=== PATIENT | male | born 1960 | race Caucasian/White ===

== ENCOUNTER 2025-10-15 06:46 | Inpatient (IN) | payer MEDICARE, OTHER ==
[2025-10-08 14:07] LABS: MEAN PLATELET VOLUME 8.5 FL (7.4-10.4); PRE OP HEMATOCRIT 45.8 % (42.0-52.0); PRE OP HEMOGLOBIN 15.6 g/dL (14.0-17.9); PRE OP PLATELET COUNT 203 X10'3 (140-440); PRE OP WHITE BLOOD COUNT 5.1 10'3 (4.8-10.8); RED CELL DISTRIBUTION WIDTH 13.7 % (11.5-14.5)
--- NOTE | 2025-10-08 14:08 | ELECTROCARDIOGRAPH REPORT ---
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 SUSAN Reyes Measurements Intervals [place] Rate: 47 P: 3 WA: 177 QRS: 0 QRSD: 115 T: 61 QT: 482 QTc: 427 Interpretive Statements Sinus bradycardia Nonspecific intraventricular conduction delay Electronically Signed On 10-08-2025 16:54:[address] SUSAN Reyes Please click the below link to view image of tracing.
[2025-10-08 14:28] LABS: CREATININE 0.94 MG/DL (0.60-1.10); PRE OP ALT 22 U/L (30-65); PRE OP ANION GAP 10 (8-16); PRE OP AST 17 U/L (10-37); PRE OP BILIRUB, TOTAL 0.8 MG/DL (0.0-1.0); PRE OP GLUCOSE 96 MG/DL (70-104); PRE OP POTASSIUM 4.0 MMOL/L (3.4-5.1); PRE OP SODIUM 142 MMOL/L (135-145); TOTAL CARBON DIOXIDE 24.1 MMOL/L (24-32); eGFR 80 ML/MIN
[~2025-10-15] VITALS: Ht 177.8 cm; Wt 140.9 kg
[2025-10-15] VITALS (21 sets, daily range): BP systolic 95–127; BP diastolic 41–78; PULSE 44–61; RESP 12–18; TEMP 97.2–97.8; O2SAT 92–100
[2025-10-15] MEDS: ringers solution, lacted 1,000 ML IV SCH ×2 (05:30→10:20)
[~2025-10-15 06:46] MED LIST: CHOL100025 PO; CYAN-36 PO; FERR-119 PO; HYDR-3972 PO; PHEN30CA21 PO; TAMSULOSIN PO; TRAZ-251 PO; [UNRECOGNIZED DRUG - CODE] PO
[2025-10-15] MEDS ORDERED: LIDOcaine 1% (10mg/ml)w/preservative inj. 20ml MDV ONE (08:26)
[2025-10-15] MEDS ORDERED: BUPIVAcaine/PF 2.5mg/ml (0.25%) 10ml vial ONE (08:27)
[2025-10-15] MEDS ORDERED: BUPIVAcaine 2.5mg/ml inj 50ml vial (contains preservative) ONE (08:27)
[2025-10-15] MEDS ORDERED: BUPIVACAINE liposomal/PF 13.3 MG/ML 10mL vial IM ONE (08:27)
[2025-10-15] MEDS ORDERED: fentaNYL/PF 50MCG/1 ML 2ML syringe ONE (09:18)
[2025-10-15] MEDS ORDERED: midazolam 1 mg/ML 2ml injection ONE (09:18)
--- NOTE | 2025-10-15 09:22 | HISTORY AND PHYSICAL ---
History & Physical Providers to CC CC: ASHISH RIVAS MD ~ History of Present Illness Reason for Admit\Complaint: 10 cm incisional History of Present Illness Obese 65-year-old gentleman seen in my office greater than 30 days ago here for elective surgery This is an interval history and physical exam He denies any change in his past medical history since he was seen in the office (please see previous history and physical exam for all pertinent details) Allergies: Coded Allergies: shrimp (Verified Allergy, Severe, HIVES/WELTS, 10/14/25) Home Medications Home Medications Active Reported Vitamin D (Cholecalciferol) 1,000 Unit Tablet 2,000 Units PO DAILY B-12 (Cyanocobalamin (Vitamin B-12)) 1,000 Mcg Tablet 2,000 Mcg PO DAILY 30 Days [Tamsulosin] 0.4 Mg PO QPM Vitamin C (Ascorbic Acid) 2,000 Mg Tablet.sa 1 Tab PO DAILY Phentermine Hcl 30 Mg Capsule 1 Cap PO DAILY Trazodone HCl 50 Mg Tablet 1 Tab PO HS Hydrocodon-Acetaminophn 10-325 tablet (Acetaminophen/Hydrocodone Bitart) 10mg- 325mg Tablet 1 Tab PO QID PRN PRN Iron (Ferrous Sulfate) 325 Mg (65 Mg Iron) Tablet 1 Tab PO DAILY ROS ROS Reviewed and negative with the exception of those found in the history of present illness Exam General: 65-year-old male in no acute distress Chest: Lungs are clear to auscultation bilaterally Cardiovascular: Regular rate and rhythm without murmurs Abdomen: Obese abdomen Midline surgical scar from the epigastrium to the umbilicus Large periumbilical hernia, partially reducible with other palpable masses along the surgical scar consistent with his history of multiple midline hernias Problems: (1) Incarcerated incisional hernia Assessment & Plan: Multiple defects On CT scan, multiple defects measuring a total of 10 cm Additional Plan The risks, benefits, and alternatives to a robotic assisted, laparoscopic possible open incisional hernia repair with mesh were discussed with the pat ient. Risks include, but are not limited to, bleeding, infection, injury to intra-abdominal structures, hernia recurrence and chronic postoperative pain. Patient verbalized understanding and we will proceed with surgery as scheduled today. Patient would like to go home today if possible, however, given his body habitus in the large hernia size, it is likely he will need/require inpatient stay. ASHISH RIVAS MD Oct 15, 2025 09:22
[2025-10-15] MEDS: Cefazolin 3 GM/100ML NS IVPB 100 ML IV ONE (09:35)
[2025-10-15] MEDS ORDERED: rocuronium 10mg/ml inj IV ONE ×2 (10:09→10:10)
[2025-10-15] MEDS ORDERED: propofol inj 20 ML IV ONE (10:10)
[2025-10-15] MEDS: BUPIVAcaine/PF 2.5 mg/ml (0.25%) 30ml vial IJ ONE ×2 (10:12→10:15)
[2025-10-15] MEDS: LIDOcaine 1% 30ml preserv. free vial IJ ONE (10:14)
[2025-10-15] MEDS: BUPIVACAINE liposomal/PF 13.3 MG/ML 10mL vial IM ONE (10:15)
[2025-10-15] MEDS ORDERED: ondansetron/PF 4mg/2ml inj IV PRN (10:20)
[2025-10-15] MEDS ORDERED: hydrALAZINE 20mg/ml inj. IV PRN (10:20)
[2025-10-15] MEDS ORDERED: fentaNYL/PF 50MCG/1 ML 2ML syringe IV PRN (10:20)
[2025-10-15] MEDS ORDERED: labetalol 20mg/4ml (5mg/ml) syringe IV PRN (10:20)
[2025-10-15] MEDS ORDERED: ondansetron/PF 4mg/2ml inj ONE (11:56)
[2025-10-15] MEDS ORDERED: dexamethasone sod phosphate 4mg/ml inj. ONE (11:56)
[2025-10-15] MEDS ORDERED: glycopyrrolate 0.2mg/ml inj ONE (12:02)
[2025-10-15] MEDS: acetaminophen 1,000mg/100ml IV 100 ML IV PRN (12:25)
--- NOTE | 2025-10-15 12:35 | OPERATIVE REPORT ---
Operative Report Providers to CC CC: ASIM RIVAS MD ~ Date of Procedure: Oct 15, 2025 Pre-Operative Diagnosis: Incisional hernias Post-Operative Diagnosis 29 cm incarcerated incisional hernia Procedure Performed Robotic assisted, laparoscopic mesh repair of 18 separate, incarcerated hernias spanning a distance of 29 cm (#22 modifier for extreme level of difficulty b eyond the normal case) Bilateral transversus abdominis plane nerve blocks by injection Surgeon: Asim Rivas MD FACS Kinder Teacher None Anesthesiologist: Jp Welch Type of Anesthesia: General Findings: [place]er-cheese defect extending from the high epigastrium to the umbilicus with 18 separate fascial defects spanning a distance of 29 cm This required 4.5 ft nonabsorbable suture for reapproximation This required mesh spanning a distance of 35 x 15 cm Wound class I Complications None Prosthetics\Implants used: 25 x 15 and 15 cm round mesh spanning a distance of 35 x 15 cm (5 cm of overlap) Estimated Blood Loss: Minimal Specimen Removed: None Description of Procedure: Patient was brought to the operating room and identified by the nursing staff and the attending physician. Patient was placed supine and a general anesthesia was induced. Preoperative antibiotics were given. The abdomen was prepped and draped in the standard sterile fashion. Through a left subcostal stab incision the abdomen was accessed with a Veress needle technique. Abdomen was insufflated without incident. The incision was lengthened to accommodate a 12 mm optical trocar and the abdomen was entered under laparoscopic visualization. The abdomen was surveyed laparoscopically. Omentum was tented up to the anterior abdominal wall and completely obscuring the abdominal midline. Under laparoscopic visualization, robotic trochars were placed in the left lateral and left lower quadrant. The [employer] robotic arm was docked to the patient and instruments guided intra-abdominally under laparoscopic visualization. The next 45 minutes was spent mobilizing adhesions away from the anterior abdominal wall. In doing so, 18 separate fascial defects were encountered; each with incarcerated omentum. The some of these were larger with large amounts of omentum while some of them were quite small. Each hernia abutted the adjacent hernia in a [place] Islander-cheese defect spanning a distance of 29 cm. This extended from the xiphoid process down to the superior aspect of the umbilicus. The entire anterior abdominal wall was cleared and all defects accounted for and omentum completely reduced from out of the numerous fascial defects and hernia sacs. Beginning at the xiphoid from above and just below the umbilicus from below, the rectus muscles were reapproximated in the midline, closing the 18 separate fascial defects with running, nonabsorbable, 0V lock suture. 4-1/2 feet (54 cm) was required to accomplish this. Good fascial apposition was obtained without significant tension. A coated polyester mesh was then fixed to the anterior abdominal wall with running, absorbable, 2/0, V lock suture. Mesh laid without wrinkles or folds. The mesh measured a total of 35 x 15 cm (a 25 x 15 cm oval mesh was used as well as a 15 cm diameter round mesh was used with 5 cm of overlap). The overlapping areas were sutured together with running nonabsorbable suture. Superior overlap was at the xiphoid and inferior overlap was about 6 cm below the umbilicus. The da Danit[employer] instruments were then removed and the robot undocked from the patient. Bilateral transversus abdominis plane nerve blocks by injection were then placed under laparoscopic visualization using a combination of Marcaine and Exparel. Thirty absorbable tacks were used to completely flattened out both pieces of mesh against the anterior abdominal wall. The left subcostal trocar was removed and its fascia closed percutaneously with 0 Vicryl suture under laparoscopic visualization. Remaining trochars were removed after the abdomen was allowed to deflate. Skin was closed at all sites with 4-0 Monocryl sutures and dressed with sterile dressings. Patient was awakened and taken to the postanesthesia care unit in stable condition. Counts repoted as correct: Yes ASIM RIVAS MD Oct 15, 2025 12:35
[2025-10-15] MEDS: fentaNYL/PF 50MCG/1 ML 2ML syringe IV PRN (12:39)
[2025-10-15] MEDS: HYDROmorph/NS 0.2 mg/ml PCA 100 ML IV SCH (13:00)
[2025-10-15] MEDS: potassium CL 20mEq in D5-1/2NS 1,000 ML IV SCH (15:34)
[2025-10-15] MEDS: normal saline 1000ml 1,000 ML IV SCH (19:00)
[2025-10-15] MEDS: docusate sod 100mg capsule PO SCH (20:33)
[2025-10-15] MEDS: heparin, porcine 5000 units/ml vial SQ SCH (20:35)
[2025-10-16 06:36] VITALS: BP 117/64; PULSE 53; RESP 18; TEMP 98.1; O2SAT 95
[2025-10-16 10:00] VITALS: BP 115/57; PULSE 95; RESP 18; TEMP 97.8; O2SAT 92
[2025-10-16] MEDS ORDERED: HYDROmorphone inj. 0.5 MG/0.5 ML DISP.SYRIN IV PRN (15:30)
--- NOTE | 2025-10-16 15:31 | PROGRESS NOTE ---
Progress Note Dictate Providers to CC ~ Progress Note: Subsequent surgical care on a 65-year-old gentleman who is postoperative day 1. Status post robotic assisted, laparoscopic mesh repair of a giant incisional hernia with incarcerated omentum Eighteen separate fascial defects covering an area of greater than 25 cm Tolerating clear liquid diet Pain control with VALIDATION SOFTWARE FACILITATOR Incisions are clean, dry, and intact Abdominal binder in place Regular diet as tolerated Transitioned to oral pain medication with IV pain medication for breakthrough Anticipate discharge home tomorrow Antibiotic Ordered?: No Objective Vitals Vital Signs Date Time Temp Pulse Resp B/P (MAP) Pulse Ox O2 Delivery O2 Flow Rate FiO2 10/16/25 13:00 16 10/16/25 10:00 97.8 95 115/57 (76) 92 10/16/25 08:00 Room Air 0.0 10/16/25 04:33 96 Problem\Assessment\Plan Problems/Diagnosis: (1) Incarcerated incisional hernia ASHISH RIVAS MD Oct 16, 2025 15:31
[2025-10-16] MEDS ORDERED: OXYC1TAB17 PO (15:49)
--- NOTE | 2025-10-16 15:51 | DISCHARGE SUMMARY ---
Discharge Summary Providers to CC CC: ASIM RIVAS MD ~ Discharge Summary Admission Diagnosis: Incisional hernias - 29 cm Hospital Course DATE OF ADMISSION: October 15, 2025 DATE OF DISCHARGE: October 17, 2025 Discharge Diagnosis\Comment: 29 cm incarcerated incisional hernia Operations\Procedures: Robotic assisted, laparoscopic 29 cm incarcerated incisional hernia repair with mesh Consultants: Asim Rivas MD FACS Complications: None Condition on DC: Stable New Medications: Oxycodone Hcl/Acetaminophen (Oxycodone-Acetaminophen 10-325) 10 Mg-325 Mg Tablet 1 TAB PO Q4H PRN for moderate or severe pain 4-10 for 5 Days, #30 TAB Continued Medications: Ascorbic Acid (Vitamin C) 2,000 Mg Tablet.sa 1 TAB PO DAILY Cholecalciferol (Vitamin D) 1,000 Unit Tablet 2000 UNITS PO DAILY Cyanocobalamin (Vitamin B-12) (B-12) 1,000 Mcg Tablet 2000 MCG PO DAILY for 30 Days, #30 TAB 0 Refills Ferrous Sulfate (Iron) 325 Mg (65 Mg Iron) Tablet 1 TAB PO DAILY, TAB 0 Refills Phentermine Hcl (Phentermine Hcl) 30 Mg Capsule 1 CAP PO DAILY, CAP 0 Refills [Tamsulosin] () 0.4 MG PO QPM Trazodone HCl (Trazodone HCl) 50 Mg Tablet 1 TAB PO HS, 0 Refills Discontinued Medications: Hydrocodone Bit/Acetaminophen (Hydrocodon-Acetaminophn 10-325 tablet) 10mg- 325mg Tablet 1 TAB PO QID PRN PRN for pain Discharge Summary: Patient was admitted following repair of a massive incarcerated incisional hernia. Patient had 18 separate fascial defects spanning a 29 cm segment of his upper abdominal midline. This required a significant repair and mesh that spanned 40 cm of the abdominal wall from superior to inferior. He was admitted for postoperative care and monitoring. On postoperative day 2. He was deemed ready for discharge home. *Problems/Diagnosis: (1) Incarcerated incisional hernia Total Time Spent on D/C: Up to 30 Minutes Counseling Services Smoking & Tobacco Cessation: N/A ASIM RIVAS MD Oct 16, 2025 15:51
[2025-10-16] MEDS: PCA WASTE DOCUMENTATION 1 MG ML MC SCH (15:53)
[2025-10-16 18:00] VITALS: BP 109/52; PULSE 56; RESP 18; TEMP 98.8; O2SAT 95
[2025-10-16 20:00] VITALS: RESP 18; O2SAT 95
[2025-10-16 22:00] VITALS: BP 107/66; PULSE 52; RESP 16; TEMP 97.8; O2SAT 94
[2025-10-17 06:00] VITALS: BP 128/62; PULSE 51; RESP 20; TEMP 97.5; O2SAT 94
[2025-10-17 08:00] VITALS: RESP 18; O2SAT 95
== END 2025-10-17 10:08 | disposition home or self-care (01) | DRG 337 ==
LOC: PAS IN 06:46 → SUR 3N 13:55
PROVIDERS: ADMIT Surgery; ATTEND Surgery
PROC: 3E0T3BZ Introduction of Anesthetic Agent into Peripheral Nerves and Plexi, Percutaneous Approach (ICD-10-PCS; 2025-10-15)
PROC: 8E0W4CZ Robotic Assisted Procedure of Trunk Region, Percutaneous Endoscopic Approach (ICD-10-PCS; 2025-10-15)
PROC: 0DNU4ZZ Release Omentum, Percutaneous Endoscopic Approach (ICD-10-PCS; 2025-10-15)
PROC: 0WUF4JZ Supplement Abdominal Wall with Synthetic Substitute, Percutaneous Endoscopic Approach (ICD-10-PCS; principal; 2025-10-15 09:17)
DX: K43.0 Incisional hernia with obstruction, without gangrene (principal); K66.0 Peritoneal adhesions (postprocedural) (postinfection); Z79.899 Other long term (current) drug therapy; Z91.013 Allergy to seafood
CPT/HCPCS: 36415; 80053; 82948; 85025; 87081; 93005; A4215; A4615; A4618; C1781; G0378; J0131; J0666; J0690; J1100; J1171; J1644; J2003; J2250; J2405; J2704; J2710; J3010; J3480; J3490; J7120